=== PATIENT | male | born 1950 | race Caucasian/White ===

== ENCOUNTER 2018-12-10 15:55 | Emergency (ER) | payer MEDICARE, MEDICAID ==
[~2018-12-10] VITALS: Ht 167.6 cm; Wt 72.1 kg
[2018-12-10] MEDS ORDERED: SILVER NITRATE APPLICATOR STICK EACH TP ONE ×2 (16:40→16:45)
--- NOTE | 2018-12-10 17:11 | NUR ---
PT IS IN ROOM #2B. DR MENSAH EVALUATED THE PT.
--- NOTE | 2018-12-10 17:17 | NUR ---
PT WAS D/C'd TO HOME. D/C INSTRUCTIONS GIVEN TO THE PT.
[2018-12-10 17:18] VITALS: BP 153/81
== END 2018-12-10 17:19 | disposition home or self-care (01) ==
LOC: ER 15:55
DX: R04.0 Epistaxis (principal); I25.10 Atherosclerotic heart disease of native coronary artery without angina pectoris; E11.9 Type 2 diabetes mellitus without complications
CPT/HCPCS: 30901; A4663